=== PATIENT | male | born 1955 | race Caucasian/White ===

== ENCOUNTER 2016-12-13 13:42 | Emergency (ER) | payer OTHER ==
[~2016-12-13] VITALS: Wt 76.0 kg
--- NOTE | 2016-12-13 19:52 | RADRPT ---
PROCEDURE: XR Knee. CLINICAL INDICATION: pain TECHNIQUE: AP, lateral and oblique view of the right knee were obtained. The images reviewed on a PACS workstation. COMPARISON: None. FINDINGS: The bones appear intact, with no evidence of fracture, erosion, demineralization, or dislocation. Th e alignment of the femorotibial and patellofemoral joints appears normal. No joint space narrowing i s seen. There is no definite joint effusion. There is a superior patellar enthesophyte. IMPRESSION: No visualized fracture or dislocation. Superior patellar enthesophyte. RPTAT: DD .Ar Orona MD, Date Time Electronically viewed and signed by .Ar Orona MD, on 12/13/2016 19:52 .T/
[2016-12-13] MEDS ORDERED: IBUP-1542 PO (20:17)
--- NOTE | 2016-12-13 20:37 | ERD ---
ER Documentation Chief Complaint Date/Time DATE: 12/13/16 TIME: 20:34 Chief Complaint RIGHT KNEEPAIN NON TRAUMATIC. SINCE 2 DAYS. NO DISTRESS. HPI This is a 61-year-old male presents to the ER with right knee pain for the last 2 days. Patient states that knee pain radiates up and down his leg. 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 Patient does not have any fevers or chills. Pain is constant and worse whenever he moves his foot or twists his knee. She denies any falls or trauma to the area. ROS 12 point review of systems was done, all negative except per HPI. Medications Home Meds Active Scripts Ibuprofen* (Motrin*) 600 Mg Tab, 600 MG PO Q6, #30 TAB Prov:PRINCESS ROCHE 12/13/16 PMhx/Soc Medical and Surgical Hx: pt denies Medical Hx, pt denies Surgical Hx Hx Alcohol Use: No Hx Substance Use: No Hx Tobacco Use: No Physical Exam Vitals Vital Signs Date Time Temp Pulse Resp B/P Pulse Ox O2 Delivery O2 Flow Rate FiO2 12/13/16 21:55 195/88 12/13/16 20:41 98.0 66 20 201/88 98 Room Air 12/13/16 13:48 98.0 68 20 120/74 98 Physical Exam GENERAL: The patient is well developed and appropriate for usual state of health , in no apparent distress. HEENT: Atraumatic CHEST: Clear to auscultation bilaterally. There are no rales, wheezes or rhonchi. HEART: Regular rate and rhythm. No murmurs, clicks, rubs or gallops. EXTREMITIES: Right knee: Patient has full range of motion of his right knee. He does experience pain with valgus or varus stress. Negative anterior drawer negative posterior drawer positive Lock[place]. She does have swelling directly below the patella. No calf swelling or redness. Neurovascularly intact. NEURO: Alert and oriented. Results 24 hrs Current Medications Medications (Trade) Dose Ordered Sig/Jer Route PRN Reason Start Time Stop Time Status Last Admin Dose Admin Nicardipine HCl (Cardene) 30 mg ONCE ONCE PO 12/13/16 21:00 12/13/16 21:01 DC 12/13/16 21:03 Procedures/MDM This is a 61-year-old male presents to the ER with right knee pain. Patient may have patellar bursitis, patient was found to have enthesophyte's as well. Patient is afebrile and well-appearing is full range of motion of his knee. I doubt septic knee or any other infectious etiology. He is neurovascularly intact. Patient will be sent with ibuprofen. Follow-up with his primary care doctor within 1-2 days or return to ER sooner if symptoms worsen. My medical decision making sure with the patient he understands and agrees with plan. Patient's bp was elevated upon discharge, he was given Caredene, bp was improved before discharge. Patient did not have any other symptoms he was not in hypertensive urgency or emergency. I advised patient to f/u urgently with his PCP regarding his bp. Departure Diagnosis: Primary Impression: Knee pain Condition: Stable Patient Instructions: Bursitis Additional Instructions: Call your primary care doctor TOMORROW for an appointment during the next 1-2 days.See the doctor sooner or return here if your condition worsens before your appointment time. PRINCESS ROCHE Dec 13, 2016 20:37
[2016-12-13 20:41] VITALS: RESP 20; TEMP 98
[2016-12-13] MEDS ORDERED: NICARDipine HCL 30 MG CAPSULE PO ONE (21:00)
[2016-12-13 22:33] VITALS: BP 142/68; PULSE 73
== END 2016-12-13 22:33 | disposition home or self-care (01) ==
LOC: FTE 13:42
DX: M25.561 Pain in right knee (principal)
CPT/HCPCS: 73562; Z7502; Z7610